=== PATIENT | male | born 1975 | race Two or more races ===

== ENCOUNTER 2018-09-09 12:29 | Emergency (ER) | payer SELFPAY ==
[2018-09-09 12:39] VITALS: BP 122/82; PULSE 84; TEMP 99.7; BMI 29.5
[2018-09-09] MEDS ORDERED: ACETAMINOPHEN 500 MG TABLET (FP) PO ONE (13:26)
[2018-09-09] MEDS ORDERED: ACETAMINOPHEN 500 MG TABLET (FP) ONE (13:27)
--- NOTE | 2018-09-09 13:29 | PDOC ---
History of Present Illness - General Chief Complaint: Cold Symptoms Stated Complaint: FEVER, CHEST PAIN Time Seen by Provider: 09/09/18 13:14 - History of Present Illness Initial Comments: 09/09/18 13:27 43-year-old male without comorbidities presents for evaluation of cough and body aches 2 days with subjective fever at home Past History - Past Medical History Allergies/Adverse Reactions: Allergies Allergy/AdvReac Type Severity Reaction Status Date / Time No Known Allergies Allergy Verified 09/09/18 12:39 Home Medications: Ambulatory Orders NK [No Known Home Medication] 09/09/18 COPD: No - Suicide/Smoking/Psychosocial Hx Smoking History: Never smoked Review of Systems - Review of Systems Constitutional: Yes: Chills, Fever, Malaise. No: Night Sweats HEENTM: Yes: Nose Congestion Respiratory: Yes: Cough *Physical Exam - Vital Signs Last Vital Signs Temp Pulse Resp BP Pulse Ox 99.7 F H 84 18 122/82 98 09/09/18 12:33 09/09/18 12:33 09/09/18 12:33 09/09/18 12:33 09/09/18 12:33 - Physical Exam Comments: 09/09/18 13:29 HEAD: NC/AT EYES: Conjuntiva clear Ears: Canals and TM's normal NOSE: No d/c THROAT: Moist mucous membrances, oral pharanx clear, uvula midline NECK: Supple without adenopathy CARDIAC: S1 S2 LUNGS: CTA Full and Equal breath sounds ABDOMEN: Soft NT ND MS: Full ROM in all joints without edema NEUROLOGIC: No gross sensory or motor deficits, NVID SKIN: Normal color and temperature no lesions or rashes *DC/Admit/Observation/Transfer Diagnosis at time of Disposition: URI (upper respiratory infection) - Discharge Dispostion Disposition: HOME Condition at time of disposition: Stable Decision to Admit order: No - Referrals Referrals: Mariama Lr MD [Non Staff, Medical] - Luis Alberto Wick MD [Non Staff, Medical] - Mare Colon MD [Non Staff, Medical] - Carol Keyes MD [Non Staff, Medical] - Sundeep Simpson [Non Staff, Medical] - Gilberto Guo MD [Non Staff, Medical] - Emilia Gould MD [Non Staff, Medical] - - Patient Instructions Printed Discharge Instructions: DI for Viral Upper Respiratory Infection -- Adult Additional Instructions: Return to the emergency room should symptoms worsen or go unresolved. Her flu swab today was negative. Tylenol and Motrin for pain and fever follow-up with internal medicine in 2-3 days for further evaluation and treatment options. If he did not have a primary care physician I recommended multiple doctors in the area for you to visit. Please call for an appointment - Post Discharge Activity
--- NOTE | 2018-09-12 13:54 | EKG ---
Test Reason : Blood Pressure : / mmHG Vent. Rate : 068 BPM Atrial Rate : 068 BPM P-R Int : 132 ms QRS Dur : 110 ms QT Int : 392 ms P-R-T Axes : 037 -01 030 degrees QTc Int : 416 ms NORMAL SINUS RHYTHM INCOMPLETE RIGHT BUNDLE BRANCH BLOCK NO PREVIOUS ECGS AVAILABLE Confirmed by TROY GROVES MD ([id number]) on 09/12/2018 1:54:11 PM Referred By: Confirmed By:TROY GROVES MD
== END 2018-09-09 14:05 | disposition home or self-care (01) ==
LOC: JERFT 12:29
DX: J06.9 Acute upper respiratory infection, unspecified (principal); B97.89 Other viral agents as the cause of diseases classified elsewhere
CPT/HCPCS: 87804; 93005; 93010; 99281-25